=== PATIENT | female | born 1980 | race African-American/Black ===

== ENCOUNTER 2017-10-05 13:37 | Emergency (ER) | payer MEDICAID ==
[~2017-10-05] VITALS: Ht 157.5 cm; Wt 82.0 kg
[2017-10-05 16:16] VITALS: BP 110/72
== END 2017-10-05 16:20 | disposition home or self-care (01) ==
LOC: ER 14:01
DX: J06.9 Acute upper respiratory infection, unspecified (principal)
CPT/HCPCS: 93005; 99283

== ENCOUNTER 2020-07-08 03:45 | Emergency (ER) | payer MEDICAID ==
[~2020-07-08] VITALS: Ht 157.5 cm; Wt 77.0 kg
[2020-07-08 04:34] LABS: HEMATOCRIT 28.6 % (36.0-48.0); MEAN CORPUSCULAR HEMOGLOBIN 20.6 pg (28.0-32.0); MEAN CORPUSCULAR VOLUME 65.9 fL (81.0-99.0); PLATELET 425 x1000/uL (130-400); RED BLOOD CELL COUNT 4.35 mill/uL (4.2-5.4); RED CELL DISTRIBUTION WIDTH 18.6 % (11.6-14.6)
[2020-07-08 04:41] LABS: CHLORIDE 104 mEq/L (98-107)
[2020-07-08] MEDS ORDERED: SODIUM CHLORIDE 0.9% 1,000 ML IV ONE (04:45)
[2020-07-08 05:17] LABS: CLARITY URINE TURBID (CLEAR); COLOR URINE DARK YELLOW (YELLOW); KETONES URINE NEGATIVE (NEGATIVE); LEUKOCYTE ESTERASE URINE 3+ (NEGATIVE); NITRITE URINE POSITIVE (NEGATIVE); OCCULT BLOOD URINE 1+ (NEGATIVE); PROTEIN URINE 1+ (NEGATIVE); SPECIFIC GRAVITY URINE 1.024 (1.005-1.030)
[2020-07-08] MEDS ORDERED: POTASSIUM CHLORIDE 20MEQ TABLET SR PO SCH (05:45)
[2020-07-08 06:12] VITALS: BP 118/84
[2020-07-13 04:07] LABS: NEISSERIA GONORRHOEAE NAA Negative (Negative)
== END 2020-07-08 06:15 | disposition home or self-care (01) ==
LOC: ER 03:45
DX: R53.1 Weakness (principal); N39.0 Urinary tract infection, site not specified; N89.8 Other specified noninflammatory disorders of vagina; R42 Dizziness and giddiness
CPT/HCPCS: 36415; 80053; 81003; 81025; 83605; 84145; 85027; 87040; 87070; 87086; 87491; 87591; 93005; 96360; 99285; J7030